=== PATIENT | female | born 1975 | race Two or more races ===

== ENCOUNTER 2020-08-11 09:32 | Emergency (ER) | payer OTHER, SELFPAY ==
[2020-08-11 09:39] VITALS: BP 112/72; PULSE 64; RESP 16; TEMP 35.9
--- NOTE | 2020-08-11 09:56 | ED.URI ---
HPI - URI/Sore Throat General Chief Complaint: Upper Respiratory Infection Stated Complaint: loss of smell Source: patient Mode of arrival: ambulatory Limitations: no limitations History of Present Illness HPI Narrative: Patient is a 44-year-old male who presents requesting Covid testing. Patient reports symptoms started approximately 16 days ago. Patient reports initially had fever, cough, fatigue and now is reporting loss of smell for the past 10 days. Patient has had symptoms for 16 days. Reports that she is feeling better at this time except for loss of smell. She denies all other complaints. MD elicited complaint: other (anosmia) Related Data Allergies Allergy/AdvReac Type Severity Reaction Status Date / Time latex Allergy Mild ITCHING Verified 11/23/18 15:28 UPON CONTACT WITH GLOVES Review of Systems Review of Systems: Narrative: CONSTITUTIONAL: Denies fever, chills, or sweats at this time, reports symptoms 1+ weeks ago. EYES: Denies visual changes, redness, or discharge. ENT: Reports anosmia CARDIOVASCULAR: Denies chest pain, palpitations, or edema. RESPIRATORY: Reports intermittent cough, denies dyspnea. GASTROINTESTINAL: Denies abdominal pain, nausea, vomiting, or diarrhea. GENITOURINARY: Denies dysuria or hematuria. SKIN: Denies rash or itching. MUSCULOSKELETAL: Denies back pain, joint pain, or myalgia. NEUROLOGIC: Denies headache, numbness, dizziness, or weakness. PSYCHIATRIC: Denies anxiety or depression. [facility] Past Medical History Medical History (Updated 08/11/20 @ 10:03 by GRISEL Montgomery) Back pain Surgical History Surgical History (Updated 08/11/20 @ 10:00 by GRISEL Montgomery) No significant past surgical history Family History Family History (Updated 08/11/20 @ 10:00 by GRISEL Montgomery) Other No significant family history Social History Social History (Updated 08/11/20 @ 10:00 by GRISEL Montgomery) Smoking status: Never smoker Alcohol intake: never Substance use: never Living arrangements: with family Exam Narrative: Exam Narrative: GENERAL: Well-appearing, well-nourished, and in no acute distress. HEAD: Normocephalic, atraumatic. EYES: No redness or drainage. ENT: Mucous membranes pink and moist. CHEST: No respiratory distress. HEART: Regular rate and rhythm. EXTREMITIES: Normal range of motion. No edema. SKIN: Warm, dry, no rash. NEURO: No focal deficits. Alert and oriented x3. Gait steady. PSYCH: Normal affect. No signs of depression or anxiety. Course Vital Signs Vital signs: Vital Signs Temperature 35.9 C L 08/11/20 09:39 Pulse Rate 64 08/11/20 09:39 Respiratory Rate 16 08/11/20 09:39 Blood Pressure 112/72 08/11/20 09:39 Temperature 35.9 C L 08/11/20 09:39 Pulse Rate 64 08/11/20 09:39 Respiratory Rate 16 08/11/20 09:39 Blood Pressure 112/72 08/11/20 09:39 Reviewed MDM - URI/Sore Throat MDM Narrative Medical decision making narrative: Discussed with patient that she most likely had Covid. Discussed with patient that she has on her mind. Patient insisting on Covid testing at this time. Discussed with patient that Covid testing at this time is not necessary, as well as that it could be an arthritic. Patient continues to request Covid. Covid testing ordered at this time. Patient is aware of quarantine protocols. Patient is stable for discharge home with outpatient follow-up with her PCP as discussed. Differential Diagnosis Differential diagnosis: Likely upper respiratory infection, viral infection, bronchitis and pharyngitis Medical Records Attestation: I reviewed the patient's medical records. Critical Care Time Critical Care Time Critical Care Time: No Discharge Plan Discharge Clinical Impression: Upper respiratory infection Qualifiers: URI type: unspecified URI Qualified Code(s): J06.9 - Acute upper respiratory infection, unspecified Patient Disposition: Home, [place]
--- NOTE | 2020-08-13 10:50 | PC.NURSE ---
Patient was notified of positive Covid results not negative as documented in Call list; pt notified by TRACY Taveras.
== END 2020-08-11 10:15 | disposition home or self-care (01) ==
PROVIDERS: Emergency Provider Nurse Practitioner; PCP Emergency Medicine
DX: J06.9 Acute upper respiratory infection, unspecified (principal); Z20.828 Contact with and (suspected) exposure to other viral communicable diseases
CPT/HCPCS: 87635; 99211; G0463; U0003

== ENCOUNTER 2020-08-11 10:11 | Outpatient (NON) | payer OTHER, SELFPAY ==
[2020-08-11 23:25] LABS: SARS-CoV-2 RNA PCR Positive
== END 2020-08-11 10:12 ==
PROVIDERS: PCP Emergency Medicine; Visit Provider Nurse Practitioner
DX: U07.1 COVID-19 (principal)
CPT/HCPCS: 87635; C9803; U0003

== ENCOUNTER 2020-08-18 09:00 | Outpatient (RCR) | payer OTHER, SELFPAY ==
--- NOTE | 2020-07-21 11:28 | PTOPEVAL ---
INITIAL PHYSICAL THERAPY EVALUATION and PLAN OF CARE Thank you for referring Lan Oneill to [facility].? Lan is scheduled to be seen for physical therapy? 2x/week for 4 weeks. Please review, sign, date and return this plan of care DAVID. I agree with and certify that the following plan of care is medically necessary. Referring Physician Date Admitting Provider: Attending Provider: Alonso Momin, Referring Provider: *PT Outpatient Evaluation Start: 07/21/20 10:22 Freq: Status: Active Protocol: Document 07/21/20 10:15 TOR (Rec: 07/21/20 11:28 TOR [id number]) Therapy Assessment Status Assessment Status Assessment Status Evaluation Outpatient Past Medical History Past Medical History Source of Past Medical History Patient Neurological History Hx Neurological Disorders No Significant History Cardiovascular History Hx Cardiac Disorders No Significant History Respiratory History Hx Respiratory Disorders No Significant History Gastrointestinal History Hx Gastrointestinal Disorders No Significant History Genitourinary History Hx Genitourinary Disorders No Significant History Musculoskeletal History Hx Back Pain Yes Endocrine History Hx Endocrine Disorders No Significant History Evaluation Information Problem Diagnosis low back pain Onset ~ 1 month ago Subjective Information always walks - stopped 2-3 Query Text:As Reported By Patient/ months ago due to L hip pain, Family feet began hurting in November Was still doing mild stretches . This episode - began walking on the treadmill - 20 min, then 10-15 min recumbant cycling - did for couple of days, skipped 1 day - then pain began - felt soreness - took it easy again. Then son was in soccer tournament - had to drive into [place] x 40 min several days. Then began to have lower back pain - more on the R hand side this time. Took ibuprofen. Sleeping was difficult. Began stretching - pain returned - then stopped took ibuprofen. Went back to stretching - pain went away. Pain then traveled into the L side. Now - having L leg symptoms - posterior L thigh, skips knee,
--- NOTE | 2020-08-18 10:25 | PTOPEVAL ---
PHYSICAL THERAPY DISCHARGE SUMMARY Thank you for referring Lan Oneill to [facility].? Lan has completed 9 visits with PT and has made good progress towards goals set. She is in agreement with discharge from PT to [facility] at this time. I agree with Lan's discharge from PT. Referring Physician Date Admitting Provider: Attending Provider: Alonso Momin, Referring Provider: *PT Outpatient Evaluation Start: 07/21/20 10:22 Freq: Status: Active Protocol: Document 08/18/20 09:03 TOR (Rec: 08/18/20 10:25 TOR [id number]) Therapy Assessment Status Assessment Status Assessment Status Discharge Evaluation Information Problem Subjective Information Lan states that past 2 days Query Text:As Reported By Patient/ has had increase in burning Family sensation with back and standing has been more difficult. Walking is usually pretty good but yesterday after walking for ~ 15 min - when she came back into the house - cramping sensation distal L LE. Still has increase in discomfort L lateral buttock/upper thigh region. Pain Assessment Timing of Pain Assessment Timing of Pain Assessment Assessment Pain Scale Pain Scale Used Numeric (1 - 10) Self Report Pain Assessment Lower Back Reported Pain Level 3 Pain Description Burning,Cramping,Soreness Lowest Pain Intensity 2 Greatest Pain Intensity 7 Pain Score Pain Score 3: Self Report Interventions Used Interventions Used By Clinicians Exercise,Manual Therapy Techniques Cervical and Lumbar ROM Lumbar ROM Lumbar Flexion (0-90) 60 Query Text:Active in Degrees Lumbar Extension (0-40) 20 Query Text:Active in Degrees Lumbar Lateral Flexion Right (0-40) 20 Query Text:Active in Degrees Lumbar Lateral Flexion Left (0-40) 20 Query Text:Active in Degrees Palpation Assessment Palpation Palpation P-A mob to R sacral base - some L sided discomfort, mild decreased mobility at L5, discomfort at L4 but good mobility, mild discomfort at L3 but good mobility Decreased mobility with side glide right to left at L5/S1, also at L3,4 Increased L pa
== END 2020-08-19 07:26 | disposition home or self-care (01) ==
LOC: ANHPT 09:00
PROVIDERS: PCP Emergency Medicine; Visit Provider Orthopaedic Surgery
DX: M54.5 Low back pain (principal)
CPT/HCPCS: 87635; 97110; 97140; 97161; 99211; G0463; U0003

== ENCOUNTER 2020-12-22 11:34 | Outpatient (CLI) | payer OTHER, SELFPAY ==
--- NOTE | ~2020-12-22 | XR_ITS ---
EXAMINATION: XR chest 2V DATE: 12/22/2020 11:54 INDICATION: Positive TB test. TECHNIQUE: Frontal and lateral views of the chest were obtained. COMPARISON: Chest 2 views 09/30/2013 FINDINGS: The chest demonstrates clear lungs without pneumonia, pleural effusion, or pneumothorax. Th e heart size is normal. IMPRESSION: 1. Normal chest. Reviewed, dictated and finalized at location A. IMPRESSION: 1. Normal chest.
== END 2020-12-22 11:35 | disposition home or self-care (01) ==
PROVIDERS: PCP Emergency Medicine; Visit Provider Emergency Medicine
DX: R76.11 Nonspecific reaction to tuberculin skin test without active tuberculosis (principal)
CPT/HCPCS: 71046

== ENCOUNTER 2021-01-04 10:23 | Outpatient (CLI) | payer OTHER, SELFPAY | END 2021-01-04 10:24 | disposition home or self-care (01) | PROVIDERS: PCP Emergency Medicine; Visit Provider Emergency Medicine | DX: Z22.7 Latent tuberculosis (principal) | CPT/HCPCS: 87070; 87205 ==

== ENCOUNTER 2021-01-15 09:07 | Emergency (ER) | payer OTHER, SELFPAY ==
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
--- NOTE | ~2021-01-15 | XR_ITS ---
XR tibia fibula RT 2V 01/15/2021 09:35 INDICATION: Right leg pain PROCEDURE: 2 views right tibia/fibula COMPARISON: No prior studies for comparison. FINDINGS: Fracture, dislocation or subluxation is not identified. The soft tissues appear within norm al limits. No foreign bodies are identified. IMPRESSION: 1: NO ACUTE BONE OR JOINT ABNORMALITY IDENTIFIED. Reviewed, dictated and finalized at location A.
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
[2021-01-15 09:22] VITALS: BP 110/71; PULSE 73; RESP 20; TEMP 36.1; O2SAT 99
[2021-01-15] MEDS: KETOROLAC (*BKC) 60 MG/2 ML VIAL IM (10:53)
== END 2021-01-15 10:55 | disposition home or self-care (01) ==
PROVIDERS: Emergency Provider Emergency Medicine; PCP Emergency Medicine
DX: S29.011A Strain of muscle and tendon of front wall of thorax, initial encounter (principal); S80.11XA Contusion of right lower leg, initial encounter; V49.50XA Passenger injured in collision with unspecified motor vehicles in traffic accident, initial encounter
CPT/HCPCS: 71046; 71100; 73590; 96372; 99284; J1885

== ENCOUNTER 2021-04-19 15:00 | Outpatient (RCR) | payer OTHER, SELFPAY ==
--- NOTE | 2021-03-17 09:27 | PTOPEVAL ---
PHYSICAL THERAPY EVALUATION Thank you for referring Lan Oneill to [facility].? Lan was evaluated for the dx of right low back pain. The patient is scheduled to be seen for therapy? 2 x/week for 4 weeks. Please review, sign, date and return this plan of care DAVID. I agree with and certify that the following plan of care is medically necessary. Referring Physician Date Attending Provider: Kareem Disla MD *PT Outpatient Evaluation Start: 03/17/21 08:12 Freq: Status: Active Protocol: Document 03/17/21 08:12 MLV (Rec: 03/17/21 08:56 MLV [id number]) Therapy Assessment Status Assessment Status Assessment Status Evaluation Evaluation Information Problem Diagnosis low back pain Onset 10 days Cause no injury Additional Evaluation Detail The pat has a hx of back pain off and on for 17 years and has done therapy with success in the past. This time, the pain is different with more intensity/no relief position and not going into her leg. The patient has seen a neurosurgeon and reports surgery not the best option but had no further details. The patient has finished the steroid w/o relief and the pain is not controlled with the pain meds and gets a very mild relief of pain with the lidocaine patch. 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 The patient is severely limited with home activities also and patient is not sleeping well. Diagnostic Tests MRI For This Problem Yes: herniated disc from prior testing Previous Treatments Previous Treatments For This Problem PT, injections, medications Pain Assessment Timing of Pain Assessment Timing of Pain Assessment Assessment Pain Scale Pain Scale Used Numeric (1 - 10) Self Report Pain Assessment Right Back Reported Pain Level 8 Pain Description Pressure,Tender on Palpation Pain Frequency Acute,Continuous Greatest Pain Intensity 10 Pain Aggravating Factors Exercise/Activity Pain Behaviors Irritable,Restless Pain Score Pain Score
--- NOTE | 2021-04-19 16:50 | PTOPEVAL ---
PHYSICAL THERAPY DISCHARGE Thank you for referring Lan Oneill to [facility].? The patient has completed therapy and met her goals. DC PT. Please review, sign, date and return this plan of care DAVID. I agree with and certify that the following plan of care. Referring Physician Date Attending Provider: Kareem Disla MD *PT Outpatient Evaluation Start: 03/17/21 08:12 Freq: Status: Active Protocol: Document 04/19/21 15:06 MLV (Rec: 04/19/21 15:51 MLV [id number]) Therapy Assessment Status Assessment Status Assessment Status Discharge Evaluation Information Problem Diagnosis low back pain Onset 1.5 months ago. Additional Evaluation Detail The patient reports overall feeling better and believes most of the relief is from using the TENS unit. The patient is to see the MD and have an MRI for follow up. The patient reports standing can increase the pain and walking helps decrease the pain. The patient feels she is I with posturing to prevent increased pain with transfers. The patient denies difficulty with her current HEP. Pain Assessment Timing of Pain Assessment Timing of Pain Assessment Assessment Pain Scale Pain Scale Used Numeric (1 - 10) Self Report Pain Assessment Right Back Reported Pain Level 3 Pain Description Soreness Other Pain Description 5-6 with standing longer Pain Aggravating Factors Weight Bearing/Standing Additional Pain Comments no pain yesterday but today is first day back to work Pain Score Pain Score 3: Self Report Interventions Used Interventions Used By Clinicians Electrical Stimulation,Heat, Mobilization,Manual Therapy Techniques Pain Relief Interventions Used By Exercise,Inactivity/Rest, Patient Sitting,Massage Modalities, TENS Cervical and Lumbar ROM Lumbar ROM Lumbar Flexion Active Mid Gee,Ankle Query Text:Hands to: Lumbar Extension (0-40) 30 Query Text:Active in Degrees Lumbar Lateral Flexion Right (0-40) 40 Query Text:Active in Degrees Lumbar Lateral Flexion Left (0-40) 40 Query Text:Active in Degrees Lateral Rotation Right (0-45) 45 Query Text:Active in Degrees Lateral Rotation Left (0-45)
== END 2021-04-20 11:57 | disposition home or self-care (01) ==
LOC: ANHPT 15:00
PROVIDERS: PCP Emergency Medicine; Visit Provider Emergency Medicine
DX: M62.830 Muscle spasm of back (principal)
CPT/HCPCS: 97014; 97110; 97140; 97162; G0283

== ENCOUNTER 2021-09-18 23:19 | Emergency (ER) | payer OTHER, SELFPAY ==
--- NOTE | ~2021-09-18 | CT_ITS ---
EXAMINATION: CT brain wo con DATE: 09/19/2021 00:41 INDICATION: Dizziness. TECHNIQUE: Computed tomography (CT) of the head was performed without intravenous contrast. The mA wa s adjusted according to patient size. Iterative reconstruction technique was employed. The dose-lengt h product was 681.00 mGy-cm. COMPARISON: None FINDINGS: There are scattered areas of low attenuation in the cerebral white matter, which is within normal limits for the patient's age. There is no intracranial hemorrhage, acute infarction, or abnorm al intracranial mass lesion. The ventricles are normal in size. There is mild mucosal thickening in t he ethmoid sinuses. The orbits are normal. The mastoid air cells are normal. IMPRESSION: 1. Normal aging brain. Reviewed, dictated and finalized at location D. LAYING FITTER IMPRESSION: 1. Normal aging brain.
[2021-09-18 23:22] VITALS: BP 125/85; PULSE 62; RESP 16; TEMP 36.6; O2SAT 100
--- NOTE | 2021-09-19 00:27 | ED.GENADULT ---
HPI - General Adult General Chief complaint: Dizziness Stated complaint: vertigo Time Seen by Provider: 09/19/21 00:04 History of Present Illness HPI narrative: Patient is a 45-year-old female who presents the emergency department chief complaint of dizziness. Patient reports that she has history of vertigo in the past and reports noticed that started rotational type symptoms worse patient reports that zonisamide was started on having patient denies focal neurological deficits. Related Data Allergies Allergy/AdvReac Type Severity Reaction Status Date / Time latex Allergy Mild ITCHING Verified 01/15/21 09:26 UPON CONTACT WITH GLOVES Review of Systems Review of Systems: A 10 system review of systems was completed on the patient and is negative except for what is stated in the HPI. Nursing and ancillary documentation was reviewed. PMFSH Past Medical History Medical History Back pain Surgical History Surgical History No significant past surgical history Family History Family History Other No significant family history Social History Social History Smoking status: Never smoker Alcohol intake: never Substance use: never Gender identity (if verbalized by the patient): Female Exam Narrative: GENERAL: Well-appearing, well-nourished, and in no acute distress. HEAD: Normocephalic, atraumatic. EYES: PERRLA and EOMI. ENT: Nares clear, no rhinorrhea or epistaxis. Mucous membranes moist. NECK: Supple. CHEST: Clear to auscultation. No respiratory distress. HEART: Regular rate and rhythm. No murmur heard. Normal peripheral pulses. ABDOMEN: Soft, nontender, nondistended, normal active bowel sounds. EXTREMITIES: Normal range of motion. No edema. SKIN: Warm, dry, no rash. NEURO: No focal deficits. Alert and oriented x3. PSYCH: Normal mood and affect. Course Course Emergency Course: CT head showed no evidence of acute findings Vital Signs Vital signs: Vital Signs Temperature 36.6 C 09/18/21 23:22 Pulse Rate 62 09/18/21 23:22 Respiratory Rate 16 09/18/21 23:22 Blood Pressure 125/85 09/18/21 23:22 Pulse Oximetry 100 09/18/21 23:22 Temperature 36.6 C 09/18/21 23:22 Pulse Rate 75 09/19/21 01:24 Respiratory Rate 16 09/18/21 23:22 Blood Pressure 136/86 09/19/21 01:24 Pulse Oximetry 100 09/18/21 23:22 Medical Decision Making Vital Signs Vital Signs: Vital Signs Temperature 36.6 C 09/18/21 23:22 Pulse Rate 62 09/18/21 23:22 Respiratory Rate 16 09/18/21 23:22 Blood Pressure 125/85 09/18/21 23:22 Pulse Oximetry 100 09/18/21 23:22 Temperature 36.6 C 09/18/21 23:22 Pulse Rate 75 09/19/21 01:24 Respiratory Rate 16 09/18/21 23:22 Blood Pressure 136/86 09/19/21 01:24 Pulse Oximetry 100 09/18/21 23:22 Lab Data Result diagrams: 09/19/21 00:30 09/19/21 00:30 Labs: Lab Results 09/19/21 09/19/21 09/19/21 Range/Units 00:30 00:30 00:30 WBC 9.6 (4.5-10.0) K/mm3 RBC 4.48 (4.2-5.4) M/mm3 Hgb 12.8 (12.0-15.0) g/dL Hct 39.4 (37.0-47.0) % MCV 87.9 (80-100) fl MCH 28.6 (26-34) pg MCHC 32.5 (32-36) g/dl RDW 13.7 (11.5-14.5) % Plt Count 221 (150-375) k/mm3 MPV 11.4 H (7.4-10.4) fl Immature Gran % (Auto) 0.3 (0-0.5) % Neut % (Auto) 72.8 (45.5-73.1) % Lymph % (Auto) 18.3 (18.3-44.2) % [place] % (Auto) 7.4 (2.6-8.5) % Eos % (Auto) 0.7 (0-4.4) % Baso % (Auto) 0.5 (0.2-1.2) % Lymph # (Auto) 1.75 (0.9-3.2) K/mm3 [place] # (Auto) 0.7 H (0.1-0.6) K/mm3 Eos # (Auto) 0.1 (0-0.3) K/mm3 Baso # (Auto) 0.1 (0.0-0.1) K/mm3 Abs Immat Gran (auto) 0.03 (0.00-0.031)
[2021-09-19 00:39] LABS: Basophils Absolute Auto 0.1 K/mm3 (0.0-0.1); Basophils Percent Auto 0.5 % (0.2-1.2); Eosinophils Absolute Auto 0.1 K/mm3 (0-0.3); Eosinophils Percent Auto 0.7 % (0-4.4); Hematocrit 39.4 % (37.0-47.0); Hemoglobin 12.8 g/dL (12.0-15.0); Immature Granulocyte Absolute 0.03 K/mm3 (0.00-0.031); Immature Granulocyte Percent A 0.3 % (0-0.5); Lymphocytes Absolute Auto 1.75 K/mm3 (0.9-3.2); Lymphocytes Percent Auto 18.3 % (18.3-44.2); Mean Corpuscular HGB Conc 32.5 g/dl (32-36); Mean Corpuscular Hemoglobin 28.6 pg (26-34); Mean Corpuscular Volume 87.9 fl (80-100); Mean Platelet Volume 11.4 fl (7.4-10.4); Monocytes Absolute Auto 0.7 K/mm3 (0.1-0.6); Monocytes Percent Auto 7.4 % (2.6-8.5); Neutrophils Percent Auto 72.8 % (45.5-73.1); Platelet Count Result 221 k/mm3 (150-375); Red Blood Count 4.48 M/mm3 (4.2-5.4); Red Cell Distribution Width 13.7 % (11.5-14.5); White Blood Count 9.6 K/mm3 (4.5-10.0)
[2021-09-19 00:50] LABS: Add Urine Microscopic? YES; Amorphous Sediment Urine Few; Appearance Urine Cloudy (Clear); Bacteria Urine Trace /hpf; Bilirubin Urine Negative (Negative); Blood Urine Negative (Negative); Color Urine Yellow (Yellow); Glucose Urine UA Negative (Negative); Ketones Urine Negative (Negative); Leukocyte Esterase Ur Negative LEU/UL (Negative); Mucus Urine Rare /lpf; Nitrate Urine Negative (Negative); Protein Urine Negative (Negative); Specific Grav Ur 1.011 (1.001-1.035); Squamous Epithelial Cell Urine Rare /hpf (Few); Urobilinogen Urine Negative mg/dL (<2.0); WBC Urine 0-3 /hpf
[2021-09-19 00:51] LABS: Alanine Aminotransferase 18 U/L (4-35); Albumin Level 4.2 g/dL (3.5-5.1); Alkaline Phosphatase 56 U/L (38-126); Anion Gap 9 mmol/L (8-16); Aspartate Amino Transferase 23 U/L (14-36); Bilirubin,Total 0.3 mg/dL (0.2-1.3); Blood Urea Nitrogen 19 mg/dL (7-17); Calcium 9.7 mg/dL (8.4-10.2); Carbon Dioxide 27 mmol/L (22-30); Chloride 99 mmol/L (98-107); Estimated CRCL calculation 72 ml/min; Estimated Glomerular Filt Rate > 60; Glucose 109 mg/dL (65-110); Potassium 3.7 mmol/L (3.4-5.0); Sodium 135 mmol/L (137-145)
[2021-09-19] MEDS: SODIUM CHLORIDE 0.9% IV 1,000 ML 999 ML IV CONT (01:10)
[2021-09-19] MEDS: ONDANSETRON INJ 4 MG/2 ML VIAL IV PUSH (01:12)
[2021-09-19 01:22] VITALS: BP 109/67; BP 139/95; PULSE 58; PULSE 64
[2021-09-19 01:24] VITALS: BP 136/86; PULSE 75
[2021-09-19] MEDS: MECLIZINE HCL 25 MG TABLET PO (01:32)
[2021-09-19 01:39] LABS: Lactic Acid Reflex 0.9 mmol/L (0.7-2.1)
[2021-09-19 02:12] VITALS: BP 113/77; PULSE 65; RESP 18; O2SAT 100
== END 2021-09-19 02:12 | disposition home or self-care (01) ==
PROVIDERS: Emergency Provider Emergency Medicine; PCP Emergency Medicine
DX: H81.10 Benign paroxysmal vertigo, unspecified ear (principal)
CPT/HCPCS: 36415; 70450; 80053; 81001; 81025; 83605; 83735; 85025; 96361; 96374; 99284; A9270; J2405; J7030

== ENCOUNTER 2023-11-16 22:18 | Emergency (ER) | payer OTHER, SELFPAY ==
[2023-11-16 22:21] VITALS: BP 126/78; PULSE 67; RESP 20; TEMP 36.5; O2SAT 98
[2023-11-16 22:51] VITALS: BP 99/57; PULSE 53; RESP 18; O2SAT 100
[2023-11-16 23:04] LABS: Influenza A QL RT-PCR Positive (Negative); Influenza B QL RT-PCR Negative (Negative); RSV RNA, RT-PCR Negative (Negative); SARS-CoV-2 RNA PCR Negative (Negative)
--- NOTE | 2023-11-16 23:52 | ED.FEVER ---
HPI - Fever General Chief Complaint: Fever Stated Complaint: Fever, cough, body aches x17 days Time Seen by Provider: 11/16/23 23:05 Source: patient Mode of arrival: ambulatory Limitations: no limitations History of Present Illness HPI Narrative: This is a 48-year-old female that presents to the emergency department for cold symptoms. Ongoing over the last couple of weeks. Reports worsening over the last couple of days. Reports fever, cough, congestion, and sore throat. She was seen by her PCP and prescribed a Z-Nic and steroids without relief. Denies shortness of breath. Related Data Allergies Allergy/AdvReac Type Severity Reaction Status Date / Time latex Allergy Mild ITCHING Verified 11/16/23 22:52 UPON CONTACT WITH GLOVES Review of Systems Review of Systems: CONSTITUTIONAL: Reports fever ENT: Reports rhinorrhea, congestion, sore throat RESPIRATORY: Reports cough. Denies dyspnea. All systems reviewed & are unremarkable except as noted in HPI and below PMFSH Past Medical History Medical History Back pain Surgical History Surgical History No significant past surgical history Family History Family History Other No significant family history Social History Social History (System 12/05/22 @ 10:45 by Tres Finn) Smoking status: Never smoker Alcohol intake: never Substance use: never Living arrangements: with family Gender identity (if verbalized by the patient): Female Exam Narrative: GENERAL: Well-appearing, well-nourished, and in no acute distress. HEAD: Normocephalic, atraumatic. EYES: EOMI. ENT: Nares clear, no rhinorrhea or epistaxis. Mucous membranes moist. Oropharynx without tonsillar hypertrophy exudate or other lesions. Bilateral TMs pearly philip non-bulging NECK: Supple. No adenopathy or masses. CHEST: Clear to auscultation. No respiratory distress. No wheezes rales or rhonchi HEART: Regular rate and rhythm. No murmur heard. Normal peripheral pulses. EXTREMITIES: Normal range of motion. No edema. SKIN: Warm, dry, no rash. NEURO: No focal deficits. Alert and oriented x3. 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 Patient updated on workup and agrees with plan of care Vital Signs Vital signs: Vital Signs Temperature 97.7 F 11/16/23 22:21 Pulse Rate 67 11/16/23 22:21 Respiratory Rate 20 11/16/23 22:21 Blood Pressure 126/78 11/16/23 22:21 Pulse Oximetry 98 11/16/23 22:21 Oxygen Delivery Room Air 11/16/23 22:21 Temperature 97.7 F 11/16/23 22:21 Pulse Rate 53 L 11/16/23 22:51 Respiratory Rate 18 11/16/23 22:51 Blood Pressure 99/57 L 11/16/23 22:51 Pulse Oximetry 100 11/16/23 22:51 Oxygen Delivery Room Air 11/16/23 22:21 MDM - Fever MDM Narrative Medical decision making narrative: Patient presents to the emergency department for cold symptoms ongoing over the last couple of weeks. Reports worsening over the last couple of days. She is afebrile and nontoxic appearing. Her vitals are stable. Lungs are clear on exam. Oxygen saturation is normal on room air. She is influenza A positive. With worsening of her symptoms over the last couple of days will treat with Tamiflu. She is to follow up with her PCP. She was given warnings to return to the ER Differential Diagnosis Differential diagnosis: Likely fever of unknown origin, community acquired pneumonia, viral infection, influenza and other (URI, sinusitis) Lab Data Attestation: I reviewed the patient's lab results. Labs: Lab Results 11/16/23 Range/Units 22:22 Influenza A (RT-PCR) Positive A (Negative) Influenza B (RT-PCR) Negative (Negative) RSV (RT-PCR) Negative (Negative) SARS-CoV-2 RNA (RT-PCR) Negative (Negative)
[2023-11-16 23:58] VITALS: BP 123/78
[2023-11-17] MEDS: ACETAMINOPHEN 500 MG TABLET 1000 MG PO (00:15)
[2023-11-17 00:19] VITALS: BP 99/77; PULSE 56; RESP 12; TEMP 36.5; O2SAT 100
== END 2023-11-17 00:21 | disposition home or self-care (01) ==
LOC: ANHED 11-17 00:07
PROVIDERS: Emergency Provider Physician Assistant; PCP Emergency Medicine
DX: J10.1 Influenza due to other identified influenza virus with other respiratory manifestations (principal); Z20.822 Contact with and (suspected) exposure to COVID-19
CPT/HCPCS: 87637; 99283; A9270

== ENCOUNTER 2024-02-27 12:47 | Outpatient (CLI) | payer OTHER, SELFPAY ==
--- NOTE | ~2024-02-27 | XR_ITS ---
EXAMINATION: XR chest 2V 02/27/2024 13:07 INDICATION: Positive TB test. PROCEDURE: 2 view chest COMPARISON: 01/15/2021 FINDINGS: The lungs are clear. The cardiomediastinal silhouette is within normal limits. There are no pleural effusions. There is no pneumothorax suspected. IMPRESSION: 1: NO ACUTE CARDIOPULMONARY DISEASE. Reviewed, dictated and finalized at location B.
== END 2024-02-27 12:48 | disposition home or self-care (01) ==
LOC: ANHIMG 12:48
PROVIDERS: PCP Emergency Medicine; Visit Provider Emergency Medicine
DX: R76.11 Nonspecific reaction to tuberculin skin test without active tuberculosis (principal)
CPT/HCPCS: 71046

== ENCOUNTER 2024-03-03 13:20 | Outpatient (CLI) | payer OTHER, SELFPAY ==
--- NOTE | ~2024-03-03 | XR_ITS ---
Left Knee Technique: AP and lateral views were obtained. Clinical History: Pain Findings: No fracture or dislocation is seen. Osseous alignment is anatomic. Joint spaces are preserv ed without degenerative or erosive change. Soft tissues are unremarkable. No joint effusion is seen. Impression: Unremarkable left knee radiographs. Reviewed, dictated and finalized at location . Impression: Unremarkable left knee radiographs.
== END 2024-03-03 13:21 | disposition home or self-care (01) ==
LOC: ANHIMG 13:20
PROVIDERS: PCP Emergency Medicine; Visit Provider Emergency Medicine
DX: M25.562 Pain in left knee (principal)
CPT/HCPCS: 73560

== ENCOUNTER 2024-04-01 15:43 | Outpatient (CLI) | payer OTHER, SELFPAY ==
--- NOTE | ~2024-04-01 | XR_ITS ---
XR foot LT min 3V Ordering provider: Kareem Disla MD History: . PAIN IN LEFT FOOT PLANTAR AREA . Comparison: None. FINDINGS: BONES: No acute fracture or dislocation. Calcaneus spur JOINT SPACES: Normal. No tarsal coalition. SOFT TISSUES: Normal. IMPRESSION: No acute osseous abnormality left foot. Reviewed, dictated and finalized at location A.
--- NOTE | ~2024-04-01 | US_ITS ---
EXAMINATION:US venous doppler LE LT INDICATION:Left knee pain TECHNIQUE: Multiple grayscale, color flow and Doppler images of the left lower extremity deep venous systems were obtained and reviewed. COMPARISON:No prior studies for comparison. FINDINGS: The common femoral, superficial femoral and popliteal veins demonstrate normal respiratory variation, augmentation and compressibility. Color flow is also seen within the posterior tibial, pe roneal, greater saphenous and profunda veins. IMPRESSION: 1: No lower extremity deep venous thrombosis. Reviewed, dictated and finalized at location B.
== END 2024-04-01 15:44 | disposition home or self-care (01) ==
LOC: ANHIMG 15:47
PROVIDERS: PCP Emergency Medicine; Visit Provider Emergency Medicine
DX: M79.672 Pain in left foot (principal); M25.562 Pain in left knee
CPT/HCPCS: 73630; 93971

== ENCOUNTER 2024-07-18 06:08 | Emergency (ER) | payer OTHER, SELFPAY ==
--- NOTE | ~2024-07-18 | CT_ITS ---
EXAMINATION: CT abdomen pelvis wo con DATE: 07/18/2024 08:14 INDICATION: Flank pain. Hematuria. TECHNIQUE: Computed tomography (CT) of the abdomen and pelvis was performed without intravenous contr ast. Automated exposure control and iterative reconstruction technique were employed. The dose-length product was 457.55 mGy-cm. COMPARISON: None. FINDINGS: The visualized portions of the lung bases demonstrate minimal atelectasis. No pleural effus ion. The heart size is normal. No pericardial effusion. The liver, gallbladder, spleen, pancreas, adr enal glands, and kidneys are normal. There is no urolithiasis. There are no dilated loops of bowel. T he appendix is normal. There are no pathologically enlarged lymph nodes. There is no free intraperito marcie fluid. There is a benign bone island in the sacrum. There is moderate lower lumbar spondylosis. IMPRESSION: 1. No urolithiasis. Reviewed, dictated and finalized at location A. 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 No urolithiasis.
[2024-07-18 06:23] VITALS: BP 117/58; PULSE 75; RESP 18; TEMP 36.8; O2SAT 100
[2024-07-18 06:28] VITALS: BP 117/58; PULSE 78; RESP 18; TEMP 36.8; O2SAT 100
[2024-07-18 06:29] LABS: BEDSIDEPREGUCG Negative (Negative)
[2024-07-18 06:34] LABS: Add Urine Microscopic? NO; Appearance Urine Clear (Clear); Bilirubin Urine Negative (Negative); Blood Urine Negative (Negative); Color Urine Yellow (Yellow); Glucose Urine UA Negative (Negative); Ketones Urine Negative (Negative); Leukocyte Esterase Ur Negative LEU/UL (Negative); Nitrate Urine Negative (Negative); Protein Urine Negative (Negative); Specific Grav Ur 1.019 (1.001-1.035); Urobilinogen Urine 0.2 mg/dL (<2.0); pH Urine 5.5 (5.0-9.0)
[2024-07-18 07:08] VITALS: BP 122/71; PULSE 72; RESP 14; O2SAT 100
[2024-07-18 07:56] LABS: Basophils Percent Auto 0.6 % (0.2-1.2); Eosinophils Absolute Auto 0.1 K/mm3 (0-0.3); Eosinophils Percent Auto 1.2 % (0-4.4); Hemoglobin 12.4 g/dL (12.0-15.0); Immature Granulocyte Absolute 0.02 K/mm3 (0.00-0.031); Immature Granulocyte Percent A 0.4 % (0-0.5); Lymphocytes Absolute Auto 1.48 K/mm3 (0.9-3.2); Lymphocytes Percent Auto 30.4 % (18.3-44.2); Mean Corpuscular HGB Conc 33.5 g/dl (32-36); Mean Corpuscular Hemoglobin 29.3 pg (26-34); Mean Corpuscular Volume 87.5 fl (80-100); Mean Platelet Volume 11.5 fl (7.4-10.4); Monocytes Absolute Auto 0.5 K/mm3 (0.1-0.6); Monocytes Percent Auto 9.7 % (2.6-8.5); Neutrophils Absolute Auto 2.8 K/mm3 (1.3-6.7); Neutrophils Percent Auto 57.7 % (45.5-73.1); Platelet Count Result 216 k/mm3 (150-375); Red Blood Count 4.23 M/mm3 (4.2-5.4); Red Cell Distribution Width 13.4 % (11.5-14.5); White Blood Count 4.9 K/mm3 (4.5-10.0)
[2024-07-18 08:05] LABS: Lactic Acid Reflex 1.4 mmol/L (0.7-2.0)
[2024-07-18 08:07] LABS: Alanine Aminotransferase 16 U/L (6-35); Albumin Level 4.2 g/dL (3.5-5.1); Alkaline Phosphatase 49 U/L (38-126); Anion Gap 6 mmol/L (4-12); Aspartate Amino Transferase 23 U/L (14-36); Bilirubin,Total 0.4 mg/dL (0.2-1.3); Blood Urea Nitrogen 15 mg/dL (7-17); Calcium 9.1 mg/dL (8.4-10.2); Carbon Dioxide 31 mmol/L (22-30); Chloride 101 mmol/L (98-107); Estimated CRCL calculation 90 ml/min; Estimated Glomerular Filt Rate > 60; Glucose 71 mg/dL (65-110); Potassium 3.8 mmol/L (3.4-5.0); Sodium 138 mmol/L (137-145)
--- NOTE | 2024-07-18 08:47 | ED_ITS ---
HPI - General Adult General Chief complaint: Urogenital-Female Stated complaint: Blood in urination Time Seen by Provider: 07/18/24 07:11 History of Present Illness HPI narrative: Patient 48-year-old female presents emergency department with chief complaint of blood in the urine. The patient reports that she header. Several days ago reports that she has had some back ache and reports that today she had some irritation in her vaginal area and reports she had some discomfort in her back. Patient denies fever denies nausea reports she decided to come to the emergency department to be checked out Related Data Allergies Allergy/AdvReac Type Severity Reaction Status Date / Time latex Allergy Mild ITCHING Verified 07/18/24 06:28 UPON CONTACT WITH GLOVES Review of Systems Review of Systems: A 10 system review of systems was completed on the patient and is negative except for what is stated in the HPI. Nursing and ancillary documentation was reviewed. [facility] Past Medical History Medical History Back pain Surgical History Surgical History No significant past surgical history Family History Family History Other Diabetes mellitus Hypertension No significant family history Social History Social History Smoking status: Never smoker Alcohol intake: never Substance use: never Living arrangements: with family Gender identity (if verbalized by the patient): Female Exam Narrative: GENERAL: Well-appearing, well-nourished, and in no acute distress. HEAD: Normocephalic, atraumatic. EYES: PERRLA and EOMI. ENT: Nares clear, no rhinorrhea or epistaxis. Mucous membranes moist. NECK: Supple. CHEST: Clear to auscultation. No respiratory distress. HEART: Regular rate and rhythm. No murmur heard. Normal peripheral pulses. ABDOMEN: Soft, nontender, nondistended, normal active bowel sounds. EXTREMITIES: Normal range of motion. No edema. : Patient refused exam by physician but did allow the nurse to examine the external genitalia with no reported abnormalities SKIN: Warm, dry, no rash. NEURO: No focal deficits. Alert and oriented x3. PSYCH: Normal mood and affect. Course Vital Signs Vital signs: Vital Signs Temperature 36.8 C 07/18/24 06:23 Pulse Rate 75 07/18/24 06:23 Respiratory Rate 18 07/18/24 06:23 Blood Pressure 117/58 L 07/18/24 06:23 Pulse Oximetry 100 07/18/24 06:23 Oxygen Delivery Room Air 07/18/24 06:23 Temperature 36.8 C 07/18/24 06:28 Pulse Rate 72 07/18/24 07:08 Respiratory Rate 14 07/18/24 07:08 Blood Pressure 122/71 07/18/24 07:08 Pulse Oximetry 100 07/18/24 07:08 Oxygen Delivery Room Air 07/18/24 06:23 Medical Decision Making MDM Narrative Medical decision making narrative: Differential diagnosis includes ureterolithiasis, UTI, yeast infection, STI, pyelonephritis Urinalysis was negative CBC and CMP were within normal limits CT of the abdomen pelvis renal stone protocol showed no evidence of stone or acute abnormality Vital Signs Vital Signs: Vital Signs Temperature 36.8 C 07/18/24 06:23 Pulse Rate 75 07/18/24 06:23 Respiratory Rate 18 07/18/24 06:23 Blood Pressure 117/58 L 07/18/24 06:23 Pulse Oximetry 100 07/18/24 06:23 Oxygen Delivery Room Air 07/18/24 06:23 Temperature 36.8 C 07/18/24 06:28 Pulse Rate 72 07/18/24 07:08 Respiratory Rate 14 07/18/24 07:08 Blood Pressure 122/71 07/18/24 07:08 Pulse Oximetry 100 07/18/24 07:08 Oxygen Delivery Room Air 07/18/24 06:23 Lab Data 07/18/24 07:45 07/18/24 07:45 Labs: Lab Results 07/18/24 07/18/24 07/18/24 Range/Units 06:25 06:28 07:45 WBC 4.9 (4.5-10.0) K/mm3 RBC 4.23 (4.2-5.4) M/mm3 Hgb 12.4 (12.0-15.0) g/dL Hct 37.0 (37.0-47.0) % MCV 87.5 (80-100) fl MCH 29.3 (26-34) pg MCHC 33.5 (32-36) g/dl RDW 13.4 (11.5-14.5) % Plt Count 216 (150-375) k/mm3 MPV 11.5 H (7.4-10.4) fl Immature Gran % (Auto) 0.4 (0-0.5) % Neut % (Auto) 57.7 (45.5-73.1) % Lymph % (Auto) 30.4 (18.3-44.2) % [place] % (Auto) 9.7 H (2.6-8.5) % Eos % (Auto) 1.2 (0-4.4) % Baso % (Auto) 0.6 (0.2-1.2) % Lymph # (Auto) 1.48 (0.9-3.2) K/mm3 [place] # (Auto) 0.5 (0.1-0.6) K/mm3 Eos # (Auto) 0.1 (0-0.3) K/mm3 Baso # (Auto) 0.0 (0.0-0.1) K/mm3 Abs Immat Gran (auto) 0.02 (0.00-0.031) K/mm3 Absolute Neuts (auto) 2.8 (1.3-6.7) K/mm3 Absolute Nucleated RBC 0.000 (0.0-0.012) K/mm3 Nucleated RBC % 0.0 (0.0-0.2) % Sodium 138 (137-145) mmol/L Potassium 3.8 (3.4-5.0) mmol/L Chloride 101 (98-107) mmol/L Carbon Dioxide 31 H (22-30) mmol/L Anion Gap 6 (4-12) mmol/L BUN 15 (7-17) mg/dL Creatinine 0.60 L (0.7-1.0) mg/dL Estim Creat Clear Calc 90 ml/min Estimated GFR > 60 (59 - ) Glucose 71 (65-110) mg/dL Lactic Acid 1.4 (0.7-2.0) mmol/L Calcium 9.1 (8.4-10.2) mg/dL Total Bilirubin 0.4 (0.2-1.3) mg/dL AST 23 (14-36) U/L ALT 16 (6-35) U/L Alkaline Phosphatase 49 (38-126) U/L Total Protein 8.0 (6.3-8.2) g/dL Albumin 4.2 (3.5-5.1) g/dL Urine Color Yellow (Yellow) Urine Appearance Clear (Clear) Urine pH 5.5 (5.0-9.0) Ur Specific [place] 1.019 (1.001-1.035) Urine Protein Negative (Negative) mg/dL Urine Glucose (UA) Negative (Negative) mg/dL Urine Ketones Negative (Negative) mg/dL Ur Blood (Man) Negative (Negative) Urine Nitrate Negative (Negative) Urine Bilirubin Negative (Negative) Urine Urobilinogen 0.2 (<2.0) mg/dL Leukocyte Esterase Rfl Negative (Negative) SANDRA/UL POC Urine HCG, Qual Negative (Negative) C. trachomatis (PCR) Pending N. gonorrhoeae (PCR) Pending Discharge Plan Discharge Clinical Impression: Back pain, Dysuria Patient Disposition: Home, Self-Care Condition: Stable Instructions: Antibiotic Form, Dysuria (ED), Back Pain (ED) Prescriptions: New phenazopyridine [Pyridium] 200 mg tablet 200 mg PO TID Qty: 6 0RF No Action meclizine 25 mg tablet 25 mg PO TID PRN (Reason: dizziness) Qty: 30 0RF ondansetron 4 mg tablet,disintegrating 4 mg PO Q8H PRN (Reason: nausea and vomiting) Qty: 10 0RF cyclobenzaprine 10 mg tablet 10 mg PO TID PRN (Reason: muscle spasm) Qty: 20 0RF oseltamivir [Tamiflu] 75 mg capsule 75 mg PO Q12H 5 Days Qty: 10 0RF benzonatate 200 mg capsule 200 mg PO TID PRN (Reason: cough) Qty: 14 0RF Follow-up/Referrals: Kareem Disla MD [Primary Care Provider] - Time of Disposition: 08:53
[2024-07-18 09:01] VITALS: BP 112/76; PULSE 70; RESP 17; O2SAT 99
[2024-07-18 09:38] LABS: Chlamydia trachomatis NOT DETECTED (NOT DETECTE); Neisseria gonorrhoeae PCR NOT DETECTED (NOT DETECTE)
== END 2024-07-18 09:08 | disposition home or self-care (01) ==
PROVIDERS: Preventive Medicine Aerospace Medicine; Emergency Provider Emergency Medicine; PCP Emergency Medicine
DX: R30.0 Dysuria (principal); M54.9 Dorsalgia, unspecified
CPT/HCPCS: 36415; 74176; 80053; 81003; 81025; 83605; 85025; 87491; 87591; 99284

== ENCOUNTER 2024-09-10 08:18 | Outpatient (CLI) | payer OTHER, SELFPAY ==
--- NOTE | ~2024-09-10 | MM_ITS ---
EXAMINATION: MM screening derrick BI w dori HISTORY: Screening mammogram, family history of breast cancer in her mother. TECHNIQUE: Craniocaudal and mediolateral oblique 3-D tomosynthesis images were obtained and synthetic 2-D images were generated. CAD analysis was submitted and interpreted. COMPARISON: No prior mammogram is available for comparison at this institution. BREAST PARENCHYMAL COMPOSITION:Not Dense. There are scattered areas of fibroglandular density. FINDINGS: No suspicious mass, calcification, or architectural distortion are identified in either jeremy ast to suggest malignancy. There has been no suspicious interval change. IMPRESSION: No mammographic evidence of malignancy. Recommend routine screening mammography in one year. BI-RADS Category 1: Negative Reviewed, dictated and finalized at location . 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
== END 2024-09-10 08:19 | disposition home or self-care (01) ==
PROVIDERS: PCP Emergency Medicine; Visit Provider Obstetrics & Gynecology
DX: Z12.31 Encounter for screening mammogram for malignant neoplasm of breast (principal)
CPT/HCPCS: 77063; 77067

== ENCOUNTER 2024-10-23 15:15 | Outpatient (RCR) | payer OTHER, SELFPAY ==
--- NOTE | 2024-09-24 10:12 | OTOPEVAL1 ---
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 She reports pain with writing/taking notes and pain with lifting a plate with a lateral pinch. She describes a motion she has to do at work repetitively that involves her thumbs and this is excruciating . No pain at rest. -04/18 with picking up a plate with a lateral pinch. Assessment OT Clinical Summary Patient referred to OT with dx of right 1st CMC OA . She presents with intact functional ROM. Functional deficits include weakness and pain that limits functional application specialist and pinch during ADLs and work tasks. Today a custom fitted hand based thumb spica was fabricated for patient to wear with activity. She demonstrates excellent understanding of splint wearing schedule, purpose, etc. Continued skilled OT indicated for use of modalities, therapeutic exercise, splint modifications PRN, and HEP progression to facilitate improved functional use of her right hand. Plan of Care Interventions Therapeutic Exercise,Manual Therapy,Therapeutic Activities,Hot Pack/Cold Pack,Check Out for Orthotic/Prosthetic,Ultrasound,Paraffin OT Services Indicated Yes Treatment Frequency and 1x/week for 5 visits Duration Pt unable to attend 2x/week due to her schedule These treatments will address the objective and functional deficits as defined above. The patient will be advanced safely and appropriately in order for the patient to progress towards his/her prior level of function. Additional exercises will be introduced and as well as a comprehensive home exercise program upon discharge, if needed, to ensure carryover of functional gains achieved in the clinic. This treatment plan has been reviewed and agreement upon by the patient.
--- NOTE | 2024-09-24 10:13 | OPREHPOC ---
Outpatient Therapy Plan of Care This is a Multidisciplinary Plan of Care that may contain components documented by all disciplines (PT, OT, and ST.) OT Problem 1 OT Problem #1 Knowledge Deficit OT Goal 1 Goal / Goal Update Patient to be independent with instructed materials. Target Visit 5 OT Problem 2 OT Problem #2 Pain OT Goal 1 Goal / Goal Update Patient to report reduced pain with lateral pinching on plates to less than 3/10. Target Visit 5 OT Problem 3 OT Problem #3 Impaired Strength OT Goal 1 Goal / Goal Update To improve functional strength for ADLs, patient to be able to progress to client services representative/pinch strengthening with yellow putty without pain. Target Visit 5
--- NOTE | 2024-10-23 16:00 | OTOPDC ---
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 She has been wearing her thumb spica brace and completing her HEP. She has progressed to 0/10 at rest and 2/10 with lateral pinching. Typically her pain at worst is 2/10. She reports she is having less pain when writing, but when writing for prolonged periods (taking notes in class) her pain gets up to 2/10. At work she was having a difficult time, excruciating pain , with hooking up 02 equipment at work. Assessment OT Clinical Summary Patient referred to OT with dx of right 1st CMC OA . She has been compliant with all materials and has made good progress with reduced pain and improved functional use of her right, dominant hand. Reviewed HEP and she completes with excellent understanding. Plan of Care OT Services Indicated No
== END 2024-10-26 10:56 | disposition home or self-care (01) ==
LOC: ANHOT 15:15
PROVIDERS: PCP Emergency Medicine; Visit Provider Plastic Surgery
DX: M18.11 Unilateral primary osteoarthritis of first carpometacarpal joint, right hand (principal)
CPT/HCPCS: 97018; 97110; 97140; 97165; L3913